=== PATIENT | male | born 1980 | race Caucasian/White ===

== ENCOUNTER 2023-02-27 16:53 | Emergency (ER) | payer SELFPAY ==
[~2023-02-27] VITALS: Ht 180.3 cm; Wt 79.5 kg
[2023-02-27] MEDS ORDERED: iohexol 350MG/ML 100ml bottle IV ONE (17:05)
[2023-02-27] MEDS ORDERED: normal saline 1000ML IV soln IVB ONE (17:35)
[2023-02-27 17:38] LABS: BASOPHILS % (AUTO) 0.9 % (0-1); EOSINOPHILS # (AUTO) 0.1 X10'3 (0-0.9); HEMATOCRIT 34.9 % (42.0-52.0); HEMOGLOBIN 11.9 g/dl (14.0-17.9); LYMPHOCYTES # (AUTO) 1.7 X10'3 (1.1-4.8); MEAN CORPUSCULAR HEMOGLOBIN 32.8 PG (27.0-31.0); MEAN CORPUSCULAR VOLUME 96.3 FL (78-98); MEAN PLATELET VOLUME 6.9 FL (7.4-10.4); MONOCYTES # (AUTO) 0.6 X10'3 (0-0.9); MONOCYTES % (AUTO) 15.2 % (2-12); NEUTROPHILS # (AUTO) 1.5 X10'3 (1.8-7.7); NEUTROPHILS % (AUTO) 37.9 % (42-75); PLATELET COUNT 196 X10'3 (140-440); RED BLOOD COUNT 3.62 X10'6 (4.70-6.10); RED CELL DISTRIBUTION WIDTH 12.9 % (11.5-14.5)
[2023-02-27 17:50] LABS: APTT 23 SECONDS (22-32)
[2023-02-27 17:53] LABS: ALANINE AMINOTRANSFERASE 24 U/L (12-78); ALBUMIN 3.2 G/DL (3.4-5.0); ALBUMIN/GLOBULIN RATIO 1.3 (1.1-1.5); ALKALINE PHOSPHATASE 63 IU/L (46-116); ANION GAP 6 (8-16); ASPARTATE AMINO TRANSFERASE 25 U/L (10-37); BILIRUBIN,TOTAL 0.3 MG/DL (0.1-1.0); BLOOD UREA NITROGEN 16 MG/DL (7-18); BUN/CREATININE RATIO 12.2 (10.0-20.0); CALCIUM 7.8 MG/DL (8.5-10.1); CHLORIDE 104 MMOL/L (99-107); CREATININE 1.31 MG/DL (0.60-1.10); GLUCOSE 102 MG/DL (70-104); POTASSIUM 3.5 MMOL/L (3.5-5.1); SODIUM 137 MMOL/L (135-145); TOTAL CARBON DIOXIDE 26.8 MMOL/L (24-32); TOTAL PROTEIN 5.7 G/DL (6.4-8.2); eGFR 60 ML/MIN
[2023-02-27 17:56] LABS: PLATELET ESTIMATE NORMAL; TOTAL CELLS COUNTED 100
[2023-02-27 18:07] LABS: ETHANOL 0.128 GM/DL (0.0-0.010)
[2023-02-27 20:04] LABS: URINE AMPHETAMINE SCREEN POSITIVE (Neg); URINE BARBITUATE SCREEN NEGATIVE (Neg); URINE BENZODIAZEPINES SCREEN POSITIVE (Neg); URINE CANNABINOID SCREEN POSITIVE (Neg); URINE COCAINE SCREEN NEGATIVE (Neg); URINE METHADONE SCREEN NEGATIVE (Neg); URINE OPIATE SCREEN NEGATIVE (Neg); URINE PHENCYCLIDINE SCREEN NEGATIVE (Neg)
[2023-02-27 21:29] VITALS: BP 107/67
== END 2023-02-27 21:31 | disposition home or self-care (01) ==
LOC: ER 16:54
DX: F10.129 Alcohol abuse with intoxication, unspecified (principal); F19.10 Other psychoactive substance abuse, uncomplicated; Y90.9 Presence of alcohol in blood, level not specified
CPT/HCPCS: 36415; 70450; 70496; 70498; 71045; 80053; 80305; 80320; 82948; 84484; 85007; 85025; 85610; 85730; 93005; 96360; 99285; J3490; J7030; Q9967

== ENCOUNTER 2023-05-16 13:52 | Emergency (ER) | payer MEDICAID ==
[~2023-05-16] VITALS: Ht 180.3 cm; Wt 79.5 kg
--- NOTE | 2023-05-16 15:38 | NUR ---
PT ASKING FOR A PHONE. PHONE GIVEN TO PT AND HE IS MAKING A CALL AT THIS TIME. VITALS UPDATED.
--- NOTE | 2023-05-16 16:05 | NUR ---
Patient refused to have IV stayed on, asked a staff nure to remove his IV. Addendum: 05/16/[address] Anne was notified about this
[2023-05-16 17:07] LABS: BASOPHILS % (AUTO) 0.3 % (0-1); EOSINOPHILS # (AUTO) 0.1 X10'3 (0-0.9); EOSINOPHILS % (AUTO) 1.6 % (0-6); HEMATOCRIT 41.4 % (42.0-52.0); HEMOGLOBIN 13.9 g/dl (14.0-17.9); LYMPHOCYTES # (AUTO) 1.3 X10'3 (1.1-4.8); LYMPHOCYTES % (AUTO) 24.5 % (21-51); MEAN CORPUSCULAR HEMOGLOBIN 33.1 PG (27.0-31.0); MEAN CORPUSCULAR HGB CONC 33.7 g/dL (33.0-36.5); MEAN CORPUSCULAR VOLUME 98.4 FL (78-98); MONOCYTES # (AUTO) 0.6 X10'3 (0-0.9); MONOCYTES % (AUTO) 10.3 % (2-12); NEUTROPHILS # (AUTO) 3.4 X10'3 (1.8-7.7); NEUTROPHILS % (AUTO) 63.3 % (42-75); PLATELET COUNT 227 X10'3 (140-440); RED BLOOD COUNT 4.21 X10'6 (4.70-6.10); RED CELL DISTRIBUTION WIDTH 14.1 % (11.5-14.5); WHITE BLOOD COUNT 5.4 X10'3 (4.5-11.0)
[2023-05-16 17:15] VITALS: BP 112/70; PULSE 64; RESP 14; O2SAT 97
[2023-05-16 17:15] LABS: ALANINE AMINOTRANSFERASE 37 U/L (12-78); ALBUMIN 3.4 G/DL (3.4-5.0); ALBUMIN/GLOBULIN RATIO 1.1 (1.1-1.5); ALKALINE PHOSPHATASE 52 IU/L (46-116); ANION GAP 6 (8-16); ASPARTATE AMINO TRANSFERASE 44 U/L (10-37); BILIRUBIN,TOTAL 0.3 MG/DL (0.1-1.0); BLOOD UREA NITROGEN 11 MG/DL (7-18); BUN/CREATININE RATIO 8.7 (10.0-20.0); CALCIUM 8.2 MG/DL (8.5-10.1); CHLORIDE 107 MMOL/L (99-107); CREATININE 1.27 MG/DL (0.60-1.10); ETHANOL 68 MG/DL (<10); GLUCOSE 85 MG/DL (70-104); MAGNESIUM 1.9 MG/DL (1.5-2.4); POTASSIUM 3.7 MMOL/L (3.5-5.1); SODIUM 144 MMOL/L (135-145); TOTAL CARBON DIOXIDE 31.2 MMOL/L (24-32); TOTAL PROTEIN 6.5 G/DL (6.4-8.2); eCRCL 81 ML/MIN; eGFR 62 ML/MIN
[2023-05-16 17:23] LABS: URINE AMPHETAMINE SCREEN POSITIVE (Neg); URINE BARBITUATE SCREEN NEGATIVE (Neg); URINE BENZODIAZEPINES SCREEN POSITIVE (Neg); URINE CANNABINOID SCREEN POSITIVE (Neg); URINE COCAINE SCREEN NEGATIVE (Neg); URINE METHADONE SCREEN NEGATIVE (Neg); URINE OPIATE SCREEN NEGATIVE (Neg); URINE PHENCYCLIDINE SCREEN NEGATIVE (Neg)
== END 2023-05-16 19:00 | disposition home or self-care (01) ==
LOC: ER 13:53
DX: I46.9 Cardiac arrest, cause unspecified (principal); F17.200 Nicotine dependence, unspecified, uncomplicated
CPT/HCPCS: 36415; 80053; 80305; 80320; 83735; 85025; 93005; 99284; 99285

== ENCOUNTER 2024-06-24 18:35 | Emergency (ER) | payer MEDICAID ==
[~2024-06-24] VITALS: Ht 180.3 cm; Wt 81.1 kg
[2024-06-24] MEDS ORDERED: SULF1TAB49 PO (18:57)
[2024-06-24] MEDS ORDERED: CefTRIAXone 250MG inj IM ONE (19:00)
[2024-06-24] MEDS: CefTRIAXone 1000mg IM Kit (w/lidocaine diluent) IM ONE (19:25)
[2024-06-24] MEDS: ketorolac trometh 30MG/ML vial 30 MG/ML VIAL IV ONE (19:26)
[2024-06-24 19:31] VITALS: BP 148/68; PULSE 92; RESP 16; TEMP 98.7; O2SAT 98
== END 2024-06-24 19:33 | disposition home or self-care (01) ==
LOC: ER 18:35
DX: L03.012 Cellulitis of left finger (principal)
CPT/HCPCS: 96372; 96374; 99284; J0696; J1885